=== PATIENT | male | born 1980 | race Caucasian/White ===

== ENCOUNTER 2025-04-14 19:40 | Emergency (ER) | payer BC ==
[2025-04-14] MEDS ORDERED: Sodium Chloride 0.9% 10 ML Syringe FLUSH PRN (19:56)
[2025-04-14] MEDS: Aspirin 81 MG Tab.Chew PO ONE (20:11)
[2025-04-14] MEDS: Sodium Chloride 0.9% 1,000 ML IV ONE (20:11)
[2025-04-14 20:12] LABS: BASOPHILS ABSOLUTE AUTO 0.1 K/mm3 (0.0-0.2); BASOPHILS PERCENT AUTO 0.4 % (0.0-1.0); EOSINOPHILS ABSOLUTE AUTO 0.2 K/mm3 (0.0-0.4); HEMATOCRIT 47.1 % (42.0-52.0); HEMOGLOBIN 16.5 gm/dl (14.0-18.0); IMMATURE GRAN ABSOLUTE AUTO 0.08 K/mm3 (0.00-0.05); IMMATURE GRAN PERCENT AUTO 0.5 % (0.0-0.4); LYMPHOCYTES ABSOLUTE AUTO 3.9 K/mm3 (1.0-4.8); LYMPHOCYTES PERCENT AUTO 22.6 % (24.0-44.0); MEAN CORPUSCULAR HEMOGLOBIN 29.3 pg (28.0-32.0); MEAN CORPUSCULAR VOLUME 83.5 fl (83.0-99.0); MEAN PLATELET VOLUME 9.1 fl (9.4-12.4); MONOCYTES ABSOLUTE AUTO 1.6 K/mm3 (0.0-0.8); MONOCYTES PERCENT AUTO 9.1 % (0.0-8.0); NEUTROPHILS ABSOLUTE AUTO 11.4 K/mm3 (1.8-7.7); NEUTROPHILS PERCENT AUTO 66.4 % (41.0-71.0); PLATELET COUNT,PLT 309 K/mm3 (150-400); RED BLOOD CELL COUNT 5.64 M/mm3 (4.52-5.90); WHITE BLOOD CELL COUNT,WBC 17.13 K/mm3 (3.9-11.3)
[2025-04-14 20:25] LABS: A/G RATIO 1.4 (1-2); ALBUMIN 4.3 g/dl (3.4-5.0); ANION GAP 13.1 (5-15); BILIRUBIN TOTAL 0.7 mg/dL (0.2-1.0); BUN/CREATININE RATIO 9.2 (14-18); CALCIUM 9.2 mg/dL (8.5-10.1); CREATININE 1.2 mg/dL (0.7-1.3); EST CRCL DRUG DOSING (CG) 77.74 mL/min; MAGNESIUM 1.8 mg/dL (1.8-2.4); POTASSIUM,K 3.1 mEq/L (3.5-5.1); PROTEIN TOTAL,TP 7.4 g/dl (6.4-8.2)
[2025-04-14] MEDS: Heparin Sodium 5,000 Units/ML Vial IVPUSH ONE (20:59)
[2025-04-14] MEDS: Morphine 4 MG/ML Syringe IVPUSH ONE (21:00)
[2025-04-14] MEDS: Heparin Sodium/D5W 250 ML IV SCH (21:06)
[2025-04-14] MEDS: Nitroglycerin 0.4 MG Tab.SL SL PRN (21:33)
== END 2025-04-14 22:07 ==
LOC: JD.ED 19:40
DX: I21.4 Non-ST elevation (NSTEMI) myocardial infarction (principal); I10 Essential (primary) hypertension
CPT/HCPCS: 36415; 71045; 80053; 83690; 83735; 84484; 85025; 85730; 93005; 96361; 96365; 96375; 99285; A9270; J1644; J2270; J7030